=== PATIENT | female | born 2000 | race Asian ===

== ENCOUNTER 2019-02-28 14:11 | Emergency (ER) | payer SELFPAY ==
[~2019-02-28] VITALS: Ht 170.2 cm; Wt 58.0 kg
[2019-02-28] MEDS ORDERED: BACITRACIN ZINC OINT UDPKT TOP ONE (15:15)
[2019-02-28] MEDS ORDERED: ACETAMINOPHEN 325MG TABLET PO ONE (15:15)
[2019-02-28] MEDS ORDERED: TETANUS, DIPHTHERIA, PERTUSSIS VAC/PF 0.5ML (>7YR OLD) IM ONE (15:15)
[2019-02-28 17:50] VITALS: BP 113/71
== END 2019-02-28 17:59 | disposition home or self-care (01) ==
LOC: ER 14:11
DX: S00.83XA Contusion of other part of head, initial encounter (principal); V89.2XXA Person injured in unspecified motor-vehicle accident, traffic, initial encounter; Y93.89 Activity, other specified; Y92.89 Other specified places as the place of occurrence of the external cause; Y99.8 Other external cause status
CPT/HCPCS: 70480; 81025; 90471; 90715; 99284